=== PATIENT | female | born 1970 | race Two or more races ===

== ENCOUNTER 2023-08-17 09:19 | Emergency (ER) | payer MEDICAID, OTHER ==
[~2023-08-17] VITALS: Ht 142.2 cm; Wt 67.0 kg
[2023-08-17 10:11] VITALS: TEMP 97.9; O2SAT 97
[2023-08-17] MEDS: DexAMETHasone SOD PHOS 10MG/1ML VIAL INJ IM ONE (10:31)
[2023-08-17 10:32] VITALS: BP 162/86; PULSE 88; RESP 18
[2023-08-17] MEDS: MORPHINE SULFATE INJ 2 MG/ml SYRG IM ONE (10:32)
[2023-08-17] MEDS ORDERED: AMOX500T3 PO (12:03)
[2023-08-17] MEDS ORDERED: IBUP-1456 PO (12:03)
[2023-08-17] MEDS ORDERED: HYDR1TAB97 PO (12:03)
== END 2023-08-17 12:13 | disposition home or self-care (01) ==
LOC: ER 09:19
DX: K02.9 Dental caries, unspecified (principal); Z79.899 Other long term (current) drug therapy
CPT/HCPCS: 96372; 99284; J1100; J2270